=== PATIENT | male | born 1965 | race Hispanic/Latino ===

== ENCOUNTER → 2019-03-04 | Outpatient (CLI) | payer OTHER | END | disposition home or self-care (01) | LOC: OIH 07:35 | PROVIDERS: ATTEND Internal Medicine Nephrology | DX: Z13.6 Encounter for screening for cardiovascular disorders (principal) | CPT/HCPCS: 75571 ==

== ENCOUNTER → 2024-10-07 | Outpatient (CLI) | payer OTHER ==
--- NOTE | 2024-10-07 14:09 | HMCIMG ---
CT calcium scoring Clinical Information: CT HEART SAVER SCREENING Comparison: None CT Dose Index (CTDI): 13.30 mGy Dose Length Product (DLP): 186.18 total mGy-cm Findings: Calcium score 0. No identifiable calcification. The CT scan is not a complete chest CT. Covered portion is reviewed for incidental findings. No incidental findings seen. IMPRESSION: Calcium score as above. Calcium score reference stable: 0: No identifiable calcification 1- 10: Minimal identifiable calcification 11-100: Mild calcification 101- 400: Moderate calcification 401 and above: Significant calcification Automated exposure control and adequate statistical iterative reconstructions were utilized as dose reduction techniques.
== END | disposition home or self-care (01) ==
LOC: RAH 13:22
PROVIDERS: ATTEND Internal Medicine Cardiovascular Disease
DX: Z13.6 Encounter for screening for cardiovascular disorders (principal)
CPT/HCPCS: 75571

== ENCOUNTER 2025-09-01 06:55 | Day surgery (SDC) | payer OTHER ==
[2025-08-28 11:42] LABS: IMMATURE GRANULOCYTE ABSOLUTE 0.02 K/uL (0-1); NUCLEATED RED BLOOD CELLS 0.0 % (0.0-0.19); PLATELET COUNT (AUTO) 247 K/uL (130-400); RED BLOOD CELL COUNT(AUTO) 4.56 MIL/uL (4.50-6.20); RED CELL DISTRIBUTION WIDTH 11.9 % (11.0-15.5); WHITE BLOOD COUNT (AUTO) 6.3 K/uL (4.8-10.8)
[2025-08-28 11:44] VITALS: BP 119/75; PULSE 74; RESP 15; TEMP 98.1
[2025-08-28 11:51] LABS: INR 0.99 (0.85-1.15)
[2025-08-28 11:56] LABS: CREATININE 1.0 mg/dL (0.5-1.3); GLOMERULAR FILTR. RATE CALC 87.0 mL/min (>90); GLUCOSE,RANDOM 90.0 mg/dL (70-105); SODIUM SERUM 136.0 mmol/L (136-145); UREA NITROGEN, BLOOD 11.0 mg/dL (7-18)
[~2025-09-01] VITALS: Ht 171.4 cm; Wt 86.0 kg
[2025-09-01] VITALS (14 sets, daily range): BP systolic 112–149; BP diastolic 76–89; PULSE 79–95; RESP 14–20; TEMP 96.7–98.3
[~2025-09-01 06:55] MED LIST: LOSA25TA41 PO; TIRZ5VIA SQ; TRAZ-187 PO
[2025-09-01] MEDS ORDERED: MIDAZOLAM HCL 1 MG/ML 2ML VIAL ONE (07:36)
[2025-09-01] MEDS ORDERED: PROMETHAZINE HCL 25 MG/ML 1ML AMPULE IM PRN (09:30)
[2025-09-01] MEDS ORDERED: GLYCOPYRROLATE 0.2 MG/ML 5 ML VIAL ONE (09:36)
[2025-09-01] MEDS ORDERED: NEOSTIGMINE METHYLSULFATE 1MG/ML IV ONE (09:36)
--- NOTE | 2025-09-01 10:23 | OP ---
Operative Note: DATE OF PROCEDURE: 09/01/25 SURGEON: JALYN SOTO MD F[employer]ICATION AND ASSEMBLY SUPERVISOR: [] ANESTHESIA: []General ANESTHESIOLOGIST/STATE APPELLATE CLERK: [] PREOPERATIVE DIAGNOSIS: [] right inguinal hernia POSTOPERATIVE DIAGNOSIS: [] bilateral inguinal hernia SYNOPSIS: [] PROCEDURE: [] robotic repair of bilateral inguinal hernia ESTIMATED BLOOD LOSS: [] none INDICATIONS: [] DESCRIPTION OF PROCEDURE: []With the patient prepped in usual fashion and a Brown catheter placed we inserted the Veress needle in the left upper quadrant abdomen insufflated. Supraumbilical incision was created and a millimeter da Latoya trocar was inserted. Under direct vision I remove the needle and I placed 2 da Latoya trochars 1 in each the side of the abdomen. Then we placed the patient in Trendelenburg and I docked the robot. I went to the console and observe a Bilateral inguinal hernia. This seems to be of the indirect type. Using cautery I scored the peritoneum in the right side 1stand I brought him down bluntly. I exposed the Joshua's ligament and the indirect area I reduce a large hernia sac preserving the spermatic cords and visualizing the vas deferens and spermatic cords. The hernia was reduced without any problems. After observing the myopectineal line and the Joshua's ligament I placed a 3 D MAX MId mid mesh on the right side. This was a large one. I placed it over the Joshua's ligament covering couple centimeters below and the indirect space. The sac with the lipoma was placed over the mesh. I did the same maneuver in the left side in the hernia seems to be slightly bigger. I then closed the peritoneum with a 2 oh V-Loc In both sides. No anchoring of the mesh was necessary. We did a closure continues and dropped the pressure to 8 cm. After this was done I remove the needles and I remove all the trochars under direct vision. The skin was closed with 4-0 Monocryl and Dermabond. A tap block was placed with by anesthesia JALYN SOTO MD Sep 01, 2025 10:23
--- NOTE | 2025-09-01 10:35 | NUR ---
ASSESSMENT: DERMABOND TO LEFT INGUINAL ARE DRY/INTACT WITH NO ACTIVE BLEEDING PRESENT
--- NOTE | 2025-09-01 11:00 | NUR ---
ASSESSMENT: DERMBOND TO LEFT INGUINAL AREA DRY/INTACT WITH NO REDNESS/SWELLING NOTED TO SURROUNDING AREA.
== END 2025-09-01 11:00 | disposition home or self-care (01) ==
LOC: DAH 06:55
PROVIDERS: ATTEND Surgery
DX: K40.20 Bilateral inguinal hernia, without obstruction or gangrene, not specified as recurrent (principal); I10 Essential (primary) hypertension; Z79.01 Long term (current) use of anticoagulants; Z87.891 Personal history of nicotine dependence; Z82.49 Family history of ischemic heart disease and other diseases of the circulatory system; Z79.899 Other long term (current) drug therapy; Z98.890 Other specified postprocedural states
CPT/HCPCS: 49650; 64425; 64486; S2900; 36415; 80048; 85025; 85610; 85730; A4344; A4450; J2250; J2405; J2704; J2710; J2795; J3010; J3490; J7030; A4213; A4215; A4216; A4221; A4222; A4223; A4663; A6260; C1781; J0690